=== PATIENT | male | born 1990 | race Caucasian/White ===

== ENCOUNTER 2018-03-01 18:48 | Emergency (ER) | payer OTHER ==
[~2018-03-01] VITALS: Ht 182.9 cm; Wt 93.0 kg
[~2018-03-01 18:48] MED LIST: IBUPROFEN 800800 MG PO; NOHOMEMEDICATIONS; TRAMADOL 50 MG50 MG PO
[2018-03-01] MEDS ORDERED: NORCO 5-325 TA1 EAC1 PO (19:46)
[2018-03-01 20:17] VITALS: BP 130/77
== END 2018-03-01 20:18 | disposition home or self-care (01) ==
LOC: M.ERS 18:48
DX: S82.841A Displaced bimalleolar fracture of right lower leg, initial encounter for closed fracture (principal); S92.101A Unspecified fracture of right talus, initial encounter for closed fracture; Z88.8 Allergy status to other drugs, medicaments and biological substances; X50.9XXA Other and unspecified overexertion or strenuous movements or postures, initial encounter; Y93.89 Activity, other specified; Y92.89 Other specified places as the place of occurrence of the external cause; Y99.8 Other external cause status

== ENCOUNTER 2018-09-17 16:40 | Emergency (ER) | payer OTHER ==
[~2018-09-17] VITALS: Ht 193 cm; Wt 93.0 kg
[~2018-09-17 16:40] MED LIST changes: +NORCO 5-325 TA1 EAC1 PO
[2018-09-17 17:13] LABS: ABSOLUTE BASOPHILS 0.1 thou/uL (0.0-0.2); ABSOLUTE EOSINOPHILS 0.2 thou/uL (0.0-0.7); ABSOLUTE LYMPHOCYTES 1.4 thou/uL (0.8-5.3); ABSOLUTE MONOCYTES 0.5 thou/uL (0.0-1.2); BASOPHILS 1.2 %; EOSINOPHILS 2.9 %; HEMATOCRIT 48.1 % (42.0-52.0); LYMPHOCYTES 19.2 %; MCH 30.5 pg (26.0-34.0); MCHC 33.3 g/dL (28.0-37.0); MCV 91.6 fL (80.0-100.0); MONOCYTES 6.8 %; MPV 9.9 fl. (7.2-11.1); NUCLEATED RBCS 0 /100WBC; PLATELET COUNT* 166 thou/uL (150-400); POLYS 69.9 %; RBC 5.25 mil/uL (4.50-6.00); RDW-CV 13.1 % (10.5-14.5); WBC 7.2 thou/uL (4.0-11.0)
[2018-09-17 17:20] LABS: CREATININE 1.1 mg/dL (0.6-1.3); POTASSIUM 3.4 mmol/L (3.5-5.1)
[2018-09-17 17:31] LABS: ALBUMIN 4.1 g/dL (3.4-5.0); TOTAL BILIRUBIN 0.5 mg/dL (<0.1-1.0)
[2018-09-17 18:15] LABS: URINE BILIRUBIN NEGATIVE (Negative); URINE BLOOD NEGATIVE (Negative); URINE CLARITY CLEAR; URINE COLOR YELLOW; URINE GLUCOSE-RANDOM NEGATIVE (Negative); URINE KETONES NEGATIVE (Negative); URINE LEUKOCYTES-REFLEX NEGATIVE (Negative); URINE NITRITE-REFLEX NEGATIVE (Negative); URINE PROTEIN NEGATIVE (Negative); URINE UROBILINOGEN 0.2 E.U./dl (0.2-1.0)
[2018-09-17] MEDS ORDERED: NABUMETONE 750750 M1 PO (18:21)
[2018-09-17] MEDS ORDERED: DOXYCYCLINE 10100 MG PO (18:51)
[2018-09-17 18:53] VITALS: BP 129/69
== END 2018-09-17 18:54 | disposition home or self-care (01) ==
LOC: M.ERS 16:40
PROVIDERS: Nurse Practitioner Family
DX: N43.3 Hydrocele, unspecified (principal); I86.1 Scrotal varices; Z88.8 Allergy status to other drugs, medicaments and biological substances